=== PATIENT | female | born 1975 | race Two or more races ===

== ENCOUNTER 2024-01-16 11:03 | Emergency (ER) | payer OTHER ==
[~2024-01-16] VITALS: Ht 157.5 cm; Wt 52.2 kg
[2024-01-16] MEDS ORDERED: ACETAMINOPHEN ES 500 MG TABLET ONE (11:36)
[2024-01-16] MEDS: ACETAMINOPHEN ES 500 MG TABLET PO ONE (11:42)
[2024-01-16] MEDS ORDERED: IBUP-1957 PO (12:45)
[2024-01-16 13:23] VITALS: BP 108/76; TEMP 98.6; O2SAT 98
== END 2024-01-16 13:00 | disposition home or self-care (01) ==
LOC: ER 11:14
DX: S22.42XA Multiple fractures of ribs, left side, initial encounter for closed fracture (principal); M54.59 Other low back pain; E03.9 Hypothyroidism, unspecified; Z88.8 Allergy status to other drugs, medicaments and biological substances; W10.8XXA Fall (on) (from) other stairs and steps, initial encounter; Y93.89 Activity, other specified; Y92.098 Other place in other non-institutional residence as the place of occurrence of the external cause; Y99.8 Other external cause status
CPT/HCPCS: 71100-TC; 72110-TC